=== PATIENT | male | born 1990 | race Caucasian/White ===

== ENCOUNTER 2021-08-22 15:54 | Outpatient (CLI) | payer MEDICAID, SELFPAY ==
[2021-08-23 08:09] LABS: Hepatitis B Surface Antibody Reactive
[2021-08-25 13:08] LABS: B. henselae IgG Negative titer (Neg:<1:320); B. henselae IgM Negative titer (Neg:<1:100); B. quintana IgG Negative titer (Neg:<1:320)
[2021-08-25 14:07] LABS: B. quintana IgM Negative titer (Neg:<1:100)
== END 2021-08-22 23:59 | disposition home or self-care (01) ==
PROVIDERS: Referring Provider Internal Medicine Infectious Disease; Visit Provider Internal Medicine Infectious Disease
DX: R74.01 Elevation of levels of liver transaminase levels (principal)
CPT/HCPCS: 87522; 87521; 36415; 86611; 86706